=== PATIENT | female | born 1945 | race Caucasian/White ===

== ENCOUNTER 2016-10-19 15:43 | Emergency (ER) | payer MEDICARE, OTHER ==
[~2016-10-19 15:43] MED LIST: ARMOUR THYROID300 MG PO; COREG6.25 MG PO; COUMADIN5 MG PO; EFFEXOR100 MG PO; K-DUR20 MEQ PO; PREMPRO 0.3 MG1 EACH PO; PRINIVIL10 MG PO; TIKOSYN500 MCG PO; TYLENOL325 MG PO; WELLBUTRIN XL300 MG PO
== END 2016-10-19 19:01 | disposition home or self-care (01) ==
LOC: ER 15:43
DX: R10.84 Generalized abdominal pain (principal); R11.2 Nausea with vomiting, unspecified; R19.7 Diarrhea, unspecified; I11.0 Hypertensive heart disease with heart failure; I50.9 Heart failure, unspecified; I48.91 Unspecified atrial fibrillation; I25.2 Old myocardial infarction; Z79.01 Long term (current) use of anticoagulants; Z79.899 Other long term (current) drug therapy; Z88.0 Allergy status to penicillin; Z88.2 Allergy status to sulfonamides
CPT/HCPCS: 36415; 96361; 96374